=== PATIENT | female | born 1980 | race Caucasian/White ===

== ENCOUNTER → 2024-06-07 10:41 | Outpatient (CLI) | payer OTHER, SELFPAY | PROVIDERS: Family Provider Family Medicine; PCP Family Medicine; Referring Provider Physician Assistant; Visit Provider Physician Assistant | DX: L02.412 Cutaneous abscess of left axilla (principal) | CPT/HCPCS: 87070; 87075; 87205 ==

== ENCOUNTER 2024-11-14 09:45 | Emergency (ER) | payer OTHER, SELFPAY ==
[2024-11-14 09:52] VITALS: BP 140/79; PULSE 80; RESP 14; TEMP 36.4; O2SAT 97; BMI 39.7
[2024-11-14 10:17] LABS: Urine Volume 10mL (spun)
[2024-11-14 10:23] LABS: Bacteria Urine Moderate (10-30); Culture Indicated Urine Specimen Cultured; RBC Urine None Seen (0-5/HPF); Squamous Epithelial Cell Urine 1-5 /HPF (0-5/HPF); WBC Urine 0-1/HPF (0-5/HPF)
--- NOTE | 2024-11-14 10:50 | ED.BACK ---
HPI - Back Pain/Injury General Chief Complaint: Back Pain/Injury Stated Complaint: Lower back pain Time Seen by Provider: 11/14/24 10:03 Source: patient History of Present Illness HPI Narrative: Patient 44-year-old woman with a history of recurrent constipation that has been a lifelong issue. Frequently when she gets constipated she will have low back pain. She has not had a bowel movement since Tuesday, did do her usual bowel regimen but had only some loose stool. Back pain has been getting worse. No trauma, no fevers, no dysuria, no vaginal discharge. She comes in for further evaluation based on talking to her nurse call line Related Data Home Medications Medication Instructions Recorded Confirmed clonazepam 0.5 mg tablet (Klonopin) 0.5 mg PO ONCE PRN 06/08/24 11/14/24 semaglutide (weight loss) 0.5 0.5 mg SUBCUT QWEEK 11/14/24 11/14/24 mg/0.5 mL subcutaneous pen injector Allergies Allergy/AdvReac Type Severity Reaction Status Date / Time Pork/Porcine Containing Allergy Unknown Verified 11/14/24 09:57 Products [PORK/PORCINE CONTAINING PRODUCTS] Review of Systems Review of Systems Narrative: Pertinent positive and negative findings as per HPI Patient History Medical History (Updated 11/14/24 @ 11:01 by Amber Silverman MD) Chronic constipation Anxiety Surgical History H/O knee surgery Family History Father Stroke Social History marital status: details: Lives with and stepchildren household members: spouse and children lives independently: Yes occupational status: employed Smoking Status: Former smoker alcohol intake: current Smoking Status: Former smoker tobacco type: cigarettes Exam Initial Vital Signs Initial Vital Signs: Vital Signs Temperature 97.5 F L 11/14/24 09:52 Pulse Rate 80 11/14/24 09:52 Respiratory Rate 14 11/14/24 09:52 Blood Pressure 140/79 11/14/24 09:52 Pulse Oximetry 97 11/14/24 09:52 Oxygen Delivery Method Room Air 11/14/24 09:52 General: Alert appropriate in no acute distress Respiratory: Able to speak in full sentences, no obvious respiratory distress Abdomen: Mild distention, no significant tenderness, no rebound or guarding. No flank pain Spine: No midline thoracic or lumbar spine tenderness. No skin rashes or changes. Minor paraspinous muscle spasm right side lumbar area. Skin: No obvious rashes, warm and dry Neurologic: Grossly intact no obvious asymmetries or abnormalities Psych: appropriate insight and affect, cooperative Course Orders Ordered: ED Orders 11/14/24 10:07 Urine Culture Stat Urine Microscopic Stat Ondansetron HCl (Ondansetron 4 Mg/2 Ml Inj) 4 mg IV NOW PRN PRN Reason: Nausea And Vomiting Ondansetron HCl (Ondansetron 4 Mg Odt) 4 mg SL NOW PRN PRN Reason: Nausea And Vomiting Vital Signs Vital signs: Vital Signs - 8 hr 11/14/24 09:52 Temperature 97.5 F L Pulse Rate 80 Respiratory Rate 14 Blood Pressure 140/79 Pulse Oximetry 97 Oxygen Delivery Method Room Air MDM - Back Pain/Injury Lab Data Labs: Lab Results 11/14/24 Range/Units 10:07 Urine RBC None seen (0-5/HPF) Urine WBC 0-1/hpf (0-5/HPF) Ur Squamous Epith Cells 1-5 /hpf (0-5/HPF) Urine Bacteria Moderate (10-30) H (None) Ur Culture Indicated? Specimen cultured Vol Urine Centrifuged 10ml (spun) Point of Care Testing Test Results Negative Urine Dip Bedside Urine Glucose Negative Bedside Urine Bilirubin - Negative Bedside Urine Ketone - Negative Urine Specific [place] 1.015 Bedside Urine Occult Blood - Negative Bedside Urine pH 6.0 Bedside Urine Protein +/- 15 Bedside Urine Urobilinogen - Negative Bedside Urine Nitrite - Negative Bedside Urine Leukocytes - Negative Esterase [facility] Narrative Medical decision making narrative: 44-year-old woman with 3 days of increasing back pain typically has been associated with constipation. We discussed options at this point. With shared decision-making we opted not to proceed with lab work or imaging study. We talked about using MiraLax consecutive doses over the course of the next few hours until her bowels began to move. If she has pain that is worsening or unchanged after emptying her bowels she will return for further evaluation. I do not suspect obstruction, GI bleeding, epidural abscess, acute back strain or alternate explanation that would require further workup at this time. Discharge Plan Departure Patient Disposition: Home Clinical Impression: Abdominal pain Qualifiers: Abdominal location: generalized Qualified Code(s): R10.84 - Generalized abdominal pain Instructions: DI for Abdominal Pain-Adult, DI for Constipation Activity Restrictions/Additional Instructions: Thank you for coming in today Based on your history of having back pain with significant constipation and your physical exam and a fairly confident this is again constipation. Often with severe constipation he will have loose stool with the initial stool softener but not actually began to move the rest of your bowels. We discussed options today and chose to have you try repeated doses of MiraLax until you feel like your bowels are definitely moving and see if the pain resolves. If not, please return and we can certainly do additional workup. Of note there was a small amount of bacteria in your urine, this has been cultured, I do not think that you have a bladder infection or need antibiotics today. If the urine culture returns positive we will call you If you find that you are getting worse or develop any new symptoms, please feel free to return to the emergency department for further evaluation. Prescriptions: No Action semaglutide (weight loss) 0.5 mg/0.5 mL pen injector 0.5 mg SUBCUT QWEEK Rx Instructions: administer weeks 5 through 8 of therapy clonazepam [Klonopin] 0.5 mg tablet 0.5 mg PO ONCE PRN Stand Alone Forms: Patient Portal/API/Survey
[2024-11-14 11:04] VITALS: RESP 16
== END 2024-11-14 11:05 | disposition home or self-care (01) ==
PROVIDERS: Emergency Provider Emergency Medicine
DX: R10.84 Generalized abdominal pain (principal); M54.50 Low back pain, unspecified
CPT/HCPCS: 81003; 81015; 81025; 87086; 99282